=== PATIENT | female | born 1950 | race Caucasian/White ===

== ENCOUNTER → 2017-08-30 18:10 | Outpatient (CLI) | payer MEDICARE | END | disposition home or self-care (01) | LOC: D.MAMMO 11:30 | DX: Z85.3 Personal history of malignant neoplasm of breast (principal) ==

== ENCOUNTER 2017-09-13 13:01 | Outpatient (CLI) | payer MEDICARE ==
[2017-09-13 14:00] VITALS: BP 131/63; BMI 23.8
== END 2017-09-13 14:10 ==
LOC: D.OPS 13:01
DX: M81.0 Age-related osteoporosis without current pathological fracture (principal)

== ENCOUNTER 2018-05-21 09:12 | Outpatient (CLI) | payer MEDICARE ==
[~2018-05-21] VITALS: Ht 157.5 cm; Wt 57.7 kg
[2018-05-21 10:08] VITALS: Ht 157.5 cm; Wt 57.7 kg
== END 2018-05-21 10:34 | disposition home or self-care (01) ==
LOC: D.OPS 09:12
DX: M81.0 Age-related osteoporosis without current pathological fracture (principal)

== ENCOUNTER → 2018-06-04 09:00 | Outpatient (CLI) | payer MEDICARE ==
[2018-05-21 10:08] VITALS: BMI 23.3
== END | disposition home or self-care (01) ==
LOC: D.MRI 09:00
DX: M25.562 Pain in left knee (principal)

== ENCOUNTER → 2018-09-04 14:04 | Outpatient (CLI) | payer MEDICARE ==
[2018-05-21 10:08] VITALS: BMI 23.3
== END | disposition home or self-care (01) ==
LOC: D.CT 14:04
DX: F17.200 Nicotine dependence, unspecified, uncomplicated (principal)

== ENCOUNTER → 2018-10-02 19:00 | Outpatient (CLI) | payer MEDICARE ==
[2018-05-21 10:08] VITALS: BMI 23.3
== END | disposition home or self-care (01) ==
LOC: D.MAMMO 10:30
DX: Z85.3 Personal history of malignant neoplasm of breast (principal)

== ENCOUNTER 2018-11-04 07:20 | Day surgery (SDC) | payer MEDICARE ==
[2018-11-01 11:58] LABS: BASOPHILS 0.6 % (0-2); EOSINOPHILS 3.8 % (0-7); HEMATOCRIT 39.1 % (36.0-48.0); HEMOGLOBIN 13.3 g/dL (12-16); IMMATURE GRANULOCYTES 0.3 % (0-5); LYMPHOCYTES 25.6 % (15-50); MCH 35.7 pg (26.0-34.0); MCV 104.8 fL (80.0-100.0); MEAN PLATELET VOLUME 9.1 fL (7.4-10.4); NEUTROPHILS 58.7 % (40-80); PLATELET COUNT 356 10x3/uL (130-400); RBC 3.73 10x6/uL (4.00-5.40); RDW 14.3 % (11.5-14.5); WBC 6.4 10x3/uL (4.8-10.8)
[2018-11-01 12:13] LABS: APTT 25.5 SECONDS (22.8-39.4); INR 0.98 (0.85-1.17); PROTIME 12.5 SECONDS (11.6-15.0)
[~2018-11-04] VITALS: Ht 157.5 cm; Wt 56.2 kg
[~2018-11-04 07:20] MED LIST: ATIVAN1 MG PO; CALCIUM 500 +1 EAC3 PO; CELEXA20 MG PO; FIBER-TABS625 MG PO; HUMIRA PEN INJ 40M; METHOTREXATE2.5 MG PO; NEXIUM20 MG PO; PROBIOTIC BLEN1 EACH; TOPAMAX50 MG PO; VALTREX1000 MG PO
[2018-11-04 07:38] VITALS: Ht 157.5 cm; Wt 56.2 kg
[2018-11-04] MEDS ORDERED: HYDROCODON-ACE1 EAC7 PO ×2 (10:13→13:50)
== END 2018-11-04 12:12 | disposition home or self-care (01) ==
LOC: D.OPS 07:20
PROVIDERS: Anesthesiology
DX: K80.20 Calculus of gallbladder without cholecystitis without obstruction (principal); Z01.812 Encounter for preprocedural laboratory examination

== ENCOUNTER 2020-01-07 17:06 | Emergency (ER) | payer MEDICARE ==
[~2020-01-07] VITALS: Ht 157.5 cm; Wt 51.8 kg
[~2020-01-07 17:06] MED LIST changes: +HYDROCODON-ACE1 EAC7 PO
[2020-01-07 17:15] VITALS: Ht 157.5 cm; Wt 51.8 kg
[2020-01-07] MEDS ORDERED: CYCLOBENZAPRINE10 MG PO (18:57)
[2020-01-07 19:09] VITALS: BP 137/70
== END 2020-01-07 19:10 | disposition home or self-care (01) ==
LOC: D.ER 17:06
DX: S00.93XA Contusion of unspecified part of head, initial encounter (principal); S30.0XXA Contusion of lower back and pelvis, initial encounter; S16.1XXA Strain of muscle, fascia and tendon at neck level, initial encounter; K21.9 Gastro-esophageal reflux disease without esophagitis; V80.010A Animal-rider injured by fall from or being thrown from horse in noncollision accident, initial encounter; Y93.9 Activity, unspecified; Y92.9 Unspecified place or not applicable

== ENCOUNTER 2020-03-31 11:42 | Outpatient (CLI) | payer MEDICARE ==
[~2020-03-31] VITALS: Ht 157.5 cm; Wt 51.8 kg
[~2020-03-31 11:42] MED LIST changes: +CYCLOBENZAPRINE10 MG PO
[2020-03-31 12:07] VITALS: Ht 157.5 cm; Wt 51.8 kg
--- NOTE | 2020-03-31 12:18 | NUR ---
PROLIA INSTRUCTIONS PROVIDED
== END 2020-03-31 12:10 ==
LOC: D.OPS 11:42
PROVIDERS: ATTEND Family Medicine
DX: M81.0 Age-related osteoporosis without current pathological fracture (principal)